=== PATIENT | male | born 1955 | race Caucasian/White ===

== ENCOUNTER 2017-10-06 10:26 | Day surgery (SDC) | payer MEDICAID, SELFPAY ==
[2017-10-01 15:36] VITALS: BMI 29.0
[2017-10-06] VITALS (9 sets, daily range): BP systolic 114–136; BP diastolic 70–86; PULSE 48–78; RESP 16–18; TEMP 36.3–36.8; O2SAT 97–100; BMI 28.8
[2017-10-06] MEDS: Cefazolin 2 GM in 0.9% Normal Saline 100 ML IV (11:53)
--- NOTE | 2017-10-06 12:00 | LES_PTH ---
PATIENT: NADIA LILLY LOC: [facility] [place] U#:[id number] AGE/SX: 62/M ROOM: RE10/06/[address]: Dr. Bang Hernandes MD : 1955 BED: DIS: 10/06/2017 SPEC #: [id number] RECD: 10/06/17 12:59 STATUS: ALLEN ABBY #: [id number] PAMELA: 10/06/17 12:[address]: Bang Hernandes DEPT: SURGICAL PATHOLOGY RECD BY: Will Major ENTERED: 10/06/17 13:35 SP TYPE: Lesion OTHR DR: No Primary Care Phys Tissues: Skin of chest Procedures: Surgery Specimen Level IV HEADER OPERATION: Insertion vascular port PRE-OP DIAGNOSIS: Rectal cancer; need for IV access TISSUE SUBMITTED: Mid chest lesion, short suture superior, left long suture, please check all margins MICROSCOPIC DIAGNOSIS Mid chest lesion, excisional biopsy: Basal cell carcinoma with focal ulceration and associated inflammation, completely excised. Actinic keratosis and solar elastosis. SJ:sana 10/07/17 MICROSCOPIC DESCRIPTION Slides are reviewed. GROSS DESCRIPTION Received in fixative is one container labeled with the patient's name and designated mid chest lesion. The specimen consists of an ellipse of light galicia excised skin measuring 3.5 x 2.5 x 0.2 cm. The cutaneous surface contains an exophytic galicia lesion measuring 2.1 cm in greatest dimension. The specimen is differentially inked as follows: superior ? black, inferior ? blue, right tip ? red and left tip ? orange. The specimen is serially sectioned and totally submitted in three cassettes. / AM:sana 10/06/17 TC:0 [facility]: [id number]
[2017-10-06] MEDS: Bupiv/Epi 0.5% Mpf 30 ML Vial (12:30)
--- NOTE | 2017-10-06 13:17 | RAD_ITS ---
STUDY: X-RAY CHEST REASON FOR EXAM: Male, 62 years old. Port placement. TECHNIQUE: Single AP portable view of the chest. COMPARISON: None. FINDINGS: A right-sided Port-A-Cath has been placed. The tip is in the midportion of the superior vena cava. The lungs are clear and expanded. There is no demonstrated pleural abnormality. Normal size heart. Normal mediastinum and gloria. Normal visualized pulmonary arteries. Normal visualized aortic arch and descending thoracic aorta. There are diffuse degenerative changes of the visualized thoracic spine. Normal visualized ribs, clavicles, and shoulders. There is no demonstrated abnormality of the visualized soft tissue structures of the upper abdomen. RAD/Chest 1 View (Portable) IMPRESSION: The tip of the right portacatheter is in the midportion of the superior vena cava. Electronically Signed: Brandyn Moore MD at 13:44 EDT Tel [phone], Service support ,
--- NOTE | 2017-10-06 13:38 | DCINST_ITS ---
Discharge Diet: No Restrictions - Pain medication may cause nausea. You should typically eat light foods as you take your pain medication. Discharge Activity: Return to Normal Activity, May Shower - with your bandage in place in 1-2 days after surgery. DO NOT SHOWER WHEN YOUR PORT IS ACCESSED. Call your doctor if your incision/area has: Continuous Slow Oozing, Sudden Increased Bleeding, Increased Pain/ Swelling, Increased Redness Call your doctor if you observe: Fever of 101 or Higher Remove Dressing in (days):: 2 - When you remove the bandage, leave the steri- strips intact until they fall off. Allergies/Adverse Reactions: Allergies No Known Allergies Allergy (Verified 10/03/17 10:03) Medications to take at Discharge Polyethylene Glycol 3350 [Miralax] 17 gm PO DAILY 09/25/17 Bisacodyl [Dulcolax] 5 mg PO TID PRN PRN 10/02/17 Lidocaine/Prilocaine [Lidocaine-Prilocaine Cream] 30 gm TP DAILY PRN PRN #1 cream..g. 10/02/17 Ondansetron HCl [Zofran] 4 mg PO Q8H PRN PRN 10 Days #30 tab 10/02/17 Primary Care Physician: Care Physician,No Primary [Primary Care Provider] - Please Follow Up With: Bang Hernandes MD When: call tomorrow to make 1 week follow up appt [phone]
--- NOTE | 2017-10-06 13:43 | OP.PCM_ITS ---
Problem List (1) Encounter for adjustment or management of vascular access device Status: Acute (2) Skin lesion of chest wall Status: Acute Report of Operation Date of Procedure: 10/06/17 Pre-Operative Diagnosis: 1. Rectal cancer. 2. Need for vascular access port. 3. Anterior skin lesion of the chest wall Post-Operative Diagnosis: Same Surgery/Procedure Performed:: 1. Ultrasound and fluoroscopy-guided right chest port placement utilizing right IJ. 2. Wide local excision of skin lesion of the anterior chest wall Specimen's removed: Anterior chest wall with long suture on the left side and short suture superior Description of Procedure: After obtaining informed consent patient was brought back to the operating room MAC anesthesia was induced and the right chest and neck were prepped in normal sterile fashion. Ultrasound was used to evaluate both IJ is in the right IJ was selected. Next, using a needle, the right IJ was accessed and a guidewire was passed on into the superior vena cava under fluoroscopy guidance. A small incision was made over the puncture site and the dilator introducer was placed over the guidewire. Next this was capped and the pocket was made for the port. 1% lidocaine with epinephrine was injected in the proposed port site. An incision was made with scalpel. Electrocautery was used to make a pocket under the skin and subcutaneous tissue. Hemostasis was obtained. Next, the catheter was tunneled up to the neck incision site and placed through the introducer. The peel-away introducer was removed and the position of the catheter was confirmed on fluoroscopy. Next, the catheter was trimmed and attached to the port with the locking device. Interrupted 2-0 PDS were used to anchor the port to the chest wall and then the port was placed inside the pocket. The pocket was then flushed with saline and the port irrigated with saline. There was good blood return and the port flushed easily. Next, heparin was injected into the port. The skin was closed with subcutaneous interrupted 3-0 Vicryl sutures and interrupted skin 3-0 nylon sutures. A single 3-0 Vicryl sutures placed under the skin at the neck incision site. Next attention was paid to the skin lesion on the anterior chest wall. The skin lesion itself was a 2 cm in diameter. A marking pen was used to nohemy 1 cm margins circumferentially. Next a skin incision was marked and anesthetized with Marcaine and epinephrine. Next an incision was made and deepened to subcutaneous tissue. This was carried around the mass and then the mass was sharply excised in the subcutaneous space. The cavity was irrigated and pressure was held and hemostasis was obtained with electrocautery. The specimen was approximately 4 cm in diameter by 6 cm in diameter including margins. This included the subcutaneous fat but did not involve the fascia of the chest wall. Next the incision was closed with interrupted 3-0 Vicryl sutures and a running 4-0 Monocryl suture as well as Steri-Strips. Bandages were then applied. Patient tolerated procedure well, was taken to PACU in stable condition. Chest x-ray will be obtained. Grafts/Implants Used: 8 Khmer PowerPort - Admit VTE Documentation VTE Mechan Device Prophylaxis: SCD's
== END 2017-10-06 14:37 | disposition home or self-care (01) ==
LOC: SDC 10:27 → AC 10:33
PROVIDERS: Visit Provider Surgery
PROC: (CPT 11602; principal; 2017-10-06 11:45)
PROC: (CPT 11602; 2017-10-06 11:45)
DX: C44.519 Basal cell carcinoma of skin of other part of trunk (principal); C20 Malignant neoplasm of rectum; Z87.891 Personal history of nicotine dependence
CPT/HCPCS: 11602; 36571; 71045; 77001; 88305; J1756; J7050; J7120; C1788

== ENCOUNTER → 2017-12-31 13:07 | Outpatient (CLI) | payer MEDICAID, SELFPAY ==
[2017-10-01 15:36] VITALS: BMI 29.0
--- NOTE | 2017-12-31 13:10 | CT_ITS ---
STUDY: CT ABDOMEN AND PELVIS WITH CONTRAST REASON FOR EXAM: Male, 62 years old. Rectal cancer staging RADIATION DOSAGE (If Supplied By Facility): CTDIvol = ( 24.39 ) mGy, DLP = ( 2609.8 ) mGycm TECHNIQUE: Transaxial images were obtained from the dome of the diaphragm to the symphysis pubis without oral contrast. 100 ml of Isovue 300 contrast was administered. Sagittal and coronal images were reconstructed. Individualized dose optimization techniques were used for this CT. COMPARISON: September 18, 2017. FINDINGS: The visualized lung bases are unremarkable. The visualized portions of the heart are within normal limits. Normal liver. Normal gallbladder and extrahepatic biliary system. Normal spleen. Normal pancreas. Normal bilateral adrenal glands. Normal right kidney. Normal left kidney. Normal visualized stomach. Normal small intestine. Wall thickening with mass in the rectum is improved compared to the prior study, series 3 images 96/125 through 101/125. The appendix is visualized and appears normal. There is atherosclerotic calcification of the abdominal aorta, without a demonstrated aneurysm. Normal inferior vena cava. Normal retroperitoneum. Normal urinary bladder. There is no free fluid in the abdomen or pelvis. Normal abdominal wall. There is levoscoliosis with degenerative changes of the lumbar spine. CT/Abdomen/Pelvis W IV Cont ONLY IMPRESSION: Decreased size of mass in the rectum. No obstruction. Electronically Signed: Gabo Reyes MD at 21:59 EDT , Service support ,
--- NOTE | 2017-12-31 13:11 | CT_ITS ---
STUDY: CT CHEST WITH CONTRAST REASON FOR EXAM: Male, 62 years old. Rectal cancer staging RADIATION DOSAGE (If Supplied By Facility): CTDIvol = ( 24.39 ) mGy, DLP = ( 2609.8 ) mGycm TECHNIQUE: Transaxial imaging was performed following intravenous administration of 100 ml of Isovue 300 contrast material. Multiplanar coronal and sagittal images were reformatted. Individualized dose optimization techniques were used for this CT. COMPARISON: September 18, 2017 FINDINGS: There is port on the right extending to the superior vena cava. There are mild interstitial opacities of the lungs. There is atelectasis in the left lingula. There is no demonstrated pleural abnormality. There are calcifications of the coronary arteries. Normal mediastinum. Normal hilar regions. Normal enhanced pulmonary arteries. Normal aorta arch and descending thoracic aorta. There are multi-level degenerative changes of the thoracic spine. There is degenerative change of the shoulders. There is no demonstrated abnormality of the visualized upper abdomen. CT/Chest WITH Contrast IMPRESSION: No dominant mass or adenopathy. Electronically Signed: Gabo Reyes MD at 22:05 EDT , Service support ,
== END ==
PROVIDERS: Visit Provider Internal Medicine Hematology & Oncology
DX: C20 Malignant neoplasm of rectum (principal)
CPT/HCPCS: 71260; 74177; Q9967

== ENCOUNTER → 2019-02-01 06:59 | Outpatient (CLI) | payer MEDICAID, SELFPAY ==
[2017-10-01 15:36] VITALS: BMI 29.0
[2019-01-22 13:37] VITALS: BMI 27.3
--- NOTE | 2019-02-01 07:01 | CT_ITS ---
STUDY: CT CHEST WITH CONTRAST REASON FOR EXAM: Male, 63 years old. Follow-up rectal cancer. RADIATION DOSAGE (If Supplied By Facility): CTDIvol = ( 17.8 ) mGy, DLP = ( 1797.99 ) mGycm TECHNIQUE: Transaxial imaging was performed following intravenous administration of 100 IV Isovue 300. Individualized dose optimization techniques were used for this CT. COMPARISON: 12/31/2017 FINDINGS: There is hyperinflation of the lungs consistent with chronic obstructive lung disease (COPD). No infiltrates. No nodules or masses. No pleural effusions. There is no demonstrated pleural abnormality. Normal heart and pericardium. Normal mediastinum. Normal hilar regions. Normal enhanced pulmonary arteries. Normal aorta arch and descending thoracic aorta. There are multi-level degenerative changes of the thoracic spine. There is no demonstrated abnormality of the visualized upper abdomen. CT/Chest WITH Contrast IMPRESSION: No acute pneumonia. No evidence for metastatic disease. Hyperexpansion of the lungs consistent with COPD. Electronically Signed: Ortega Sinclair MD at 21:21 EDT , Service support ,
--- NOTE | 2019-02-01 07:01 | CT_ITS ---
STUDY: CT ABDOMEN AND PELVIS WITH CONTRAST REASON FOR EXAM: Male, 63 years old. Rectal cancer follow-up RADIATION DOSAGE (If Supplied By Facility): CTDIvol = ( 17.8 ) mGy, DLP = ( 1797.99 ) mGycm TECHNIQUE: Transaxial images were obtained from the dome of the diaphragm to the symphysis pubis without oral contrast. 100 IV Isovue 300 was administered. Sagittal and coronal images were reconstructed. Individualized dose optimization techniques were used for this CT. COMPARISON: 09/18/2017, 12/31/2017. FINDINGS: The visualized lung bases are unremarkable. The visualized portions of the heart are within normal limits. Normal liver. Normal gallbladder and extrahepatic biliary system. Normal spleen. Normal pancreas. Normal bilateral adrenal glands. Normal right kidney. Normal left kidney. Since prior study patient has had resection of rectal mass. Currently the distal sigmoid and rectum are very poorly evaluated because of absence of GI contrast and nondistention. There may be a recurrence of rectal wall thickening, and there has been significant increase in presacral soft tissue density. This can be scarring or neoplasm. PET scan is recommended. No dilated loops of bowel or evidence for obstruction but segments of bowel wall thickening cannot be excluded without oral contrast. There appears to have been a previous right colostomy that is not currently patent. Correlate with surgical history, which is not provided on this requisition. Normal abdominal aorta. Normal inferior vena cava. Normal retroperitoneum. There appears to be thickening of the wall of the urinary bladder. Normal abdominal wall. There are diffuse degenerative changes of the visualized lumbar spine. Mild levoconvex scoliosis. CT/Abdomen/Pelvis W IV Cont ONLY IMPRESSION: This interpretation is hampered by absence of surgical history and there are likely interval CT scans that are not provided for comparison. There appears to have been extensive abdominal surgery since previous exam. There appears to have been rectosigmoid surgery and a previous right mid abdominal ostomy. There may be thickening of the rectum and distal sigmoid, urinary difficult to evaluate without oral contrast. Cannot exclude recurrence. There is prominence of soft tissue density anterior to the sacrum, not present previously which could be fibrosis or neoplasm. Correlate with all prior studies, surgical history, and consider PET scan. Electronically Signed: Ortega Sinclair MD at 19:41 EDT , Service support ,
[2019-02-01 07:10] LABS: CREATININE FINGERSTICK 0.9 mg/dL (0.70-1.30); EGFR FINGERSTICK > 60.0000 mL/min (>60)
== END ==
PROVIDERS: Referring Provider Internal Medicine Hematology & Oncology; Visit Provider Internal Medicine Hematology & Oncology
DX: C20 Malignant neoplasm of rectum (principal); R97.0 Elevated carcinoembryonic antigen [CEA]
CPT/HCPCS: 71260; 74177; Q9967

== ENCOUNTER 2019-02-02 08:56 | Day surgery (SDC) | payer MEDICAID, SELFPAY ==
[2017-10-01 15:36] VITALS: BMI 29.0
[2019-01-22 13:37] VITALS: BMI 27.3
--- NOTE | 2019-01-25 08:40 | HP_ITS ---
Intake Vital Signs 01/22/19 Body Mass Index (BMI) 27.3 01/22/19 Height 6 ft 3 in 01/22/19 Weight: 220 lb 01/22/19 Body Mass Index (BMI) 27.5 01/22/19 Blood Pressure 160/92 H 01/22/19 Blood Pressure Location Rt brachial 01/22/19 Blood Pressure Position Sitting 01/22/19 Respiratory Rate 18 01/22/19 Pulse Rate 56 L 01/22/19 Pulse Source Monitor 01/22/19 Temperature 98.1 F 01/22/19 Temperature Source Oral 01/22/19 Pulse Ox 97 01/22/19 Oxygen Delivery Method room air Intake Visit Reasons: C-Scope Consult Chief Complaint: Rectal cancer follow-up [employer] Required: No Is patient in pain?: No Allergies oxycodone Adverse Reaction (Severe, Verified 01/22/19 13:37) Other Medications Lidocaine/Prilocaine [Lidocaine-Prilocaine Cream] 30 gm TP DAILY PRN PRN #1 cream..g. 10/02/17 [Rx Confirmed 01/22/19] Acetaminophen [Pain & Fever] 650 mg PO PRN PRN 09/16/18 [History Confirmed 01/22/19] Docusate Sodium [Dulcolax Stool Softener] 100 mg PO PRN PRN 09/16/18 [History Confirmed 01/22/19] PFSH Medical History Hx of sigmoidoscopy (Acute) Rectal bleeding (Acute) Rectal cancer (Acute) Rectal mass (Acute) closure fistula intestinal cutaneous (Acute) port placement (Acute) temporary diverting loop ileostomy (Acute) Surgical History H/O hand surgery (Acute) History of tonsillectomy (Acute) S/P cystoscopy with ureteral stent placement (Acute) excision of skin lesion on chest (Acute) jaw set (Acute) Family History Mother Cancer Social History (Updated 01/25/19 @ 08:40 by Bang Hernandes MD) Smoking Status: Former smoker alcohol intake: current alcohol intake frequency: other details: at least a 6 pack of beer per day substance use type: marijuana HPI HPI HPI: NADIA LILLY, is a 63 M who presents to the office today for HPI HPI Surgical H&P: Yes HPI: NADIA LILLY, is a 63 M who presents to the office today for EGD and colonoscopy. Patient reports that he has a history of Rodriguez's esophagus and is due for surveillance EGD. Patient also had a history of rectal cancer which was resected 1 year ago. He is in need of colonoscopy for surveillance. Patient reports no blood in his stool or abdominal pain. ROS General General: Yes weight change, fatigue and colon cancer; no appetite, breast cancer or weakness HEENT HEENT: No difficulty swallowing, eye injury, eye surgery, swollen glands or hoarseness Endo Endocrine: No thyroid disease, diabetes mellitus, thyroid cancer, Hair loss, heat intolerance or cold intolerance Skin Skin: No rash or changing moles Breast Breast: No left breast lump, right breast lump, nipple discharge, breast pain, abnormal mammogram, abnormal US or breast enlargement Musc Musculoskeletal: No back problems, arthritis, rheumatoid arthritis, gout or joint pain Cardio Cardiovascular: No murmur, pacemaker, heart disease, atrial fibrillation, high blood pressure, heart attack, heart stent, palpitations, shortness of breat with exertion or chest pain Psych Psychiatric: No depression, anxiety or hearing voices Resp Respiratory: No shortness of breath, No sleep apnea, No cough, No COPD, No asthma, No emphysema, No wheezing Gastro Gastrointestinal: No abdominal pain, No nausea or vomiting, No diarrhea, No constipation, No blood in stool, No acid reflux, No hemorrhoids, No ulcers, No gallbladder problem, No black,tarry stools [place] Hematologic: No blood thinners, No blood disorders, No bleeding, No anemia, No blood clots Neuro Neurologic: No system reviewed and no additional complaints, except as docu, No as per HPI, No abnormal walking, No abnormal hearing, No abnormal movements, No abnormal speech, No behavioral changes, No burning sensations, No confusion, No seizure-like activity, No unsteadiness, No dizziness, No localized weakness, No frequent falls, No headache(s), No lack of coordination, No loss of vision, No memory loss, Yes numbness, No other visual disturbances, No radiating pain, No restless legs, No sensory deficit, No fainting, Yes tingling, No tremor(s), No weakness, No other Exam Const General: cooperative Orientation: alert, oriented x3 Chest Breast Palpation: No nipple discharge Resp Effort & Inspection: normal respiratory effort Auscultation: clear to auscultation bilaterally Cardio Rate: regular rate Rhythm: regular rhythm Heart Sounds: no murmurs GI Inspection: non-distended Palpation: soft, nontender Assessment & Plan Problems 1. Rectum cancer C20 2. Rodriguez's esophagus without dysplasia K22.70 Plan The patient has a history of Rodriguez's esophagus and needs surveillance EGD. Patient had a history of rectal cancer with resection and then subsequent reversal of his loop ileostomy. Patient needs colonoscopy for surveillance. I explained endoscopy in detail to the patient. I explained the risks including but not limited to stroke or heart attack with anesthesia, perforation of the GI tract, bleeding, infection. I explained that any of these could necessitate further emergency surgery. The patient understands and all questions were answered sufficiently. The patient wishes to proceed with procedure. Bnag Hernandes MD Pager: [facility] [address] [place] [address] [address] [place] [address] Office: Orders Orders: Colonoscopy Today C20 EGD Today K22.70 Coding Level of Care Code Off vis,est,level 3 Diagnoses Rectum cancer C20 Rodriguez's esophagus without dysplasia K22.70 ??Rodriguez's esophagus type: without dysplasia 01/25/19 0840 <Electronically signed by Bang blanton MD> Date _ Bang Hernandes MD I have re-examined the patient. There are no clinical changes since date of exam.
--- NOTE | 2019-02-02 | IMM_PTH ---
PATIENT: NADIA LILLY LOC: [place] U#:[id number] AGE/SX: 63/M ROOM: RE02/02/[address]: Dr. Bang Hernandes MD : 1955 BED: DIS: 02/02/2019 SPEC #: [id number] RECD: 02/03/19 11:41 STATUS: ALLEN REQ #: [id number] PAMELA: 02/02/19 00:[address]: Bang Hernandes DEPT: IMMUNOHISTOCHEMISTRY RECD BY: Gissell Mayer ENTERED: 02/03/19 11:42 SP TYPE: IMMUNO OTHR DR: Dr. Nataly Tyler MD Tissues: Esophageal mucous membrane Procedures: P53 (initial) PHYSICIAN & [place] [id number] SPECIMEN INFORMATION: Tissue Source: GE junction biopsy Clinical Info: Rodriguez's esophagus, history of rectal cancer Specimen Number: [id number] CPT code: 94476 METHODOLOGY: Deparaffinized sections of prefer/formalin-fixed tissue or PAP/DQ stained slides are incubated with monoclonal/polyclonal antibodies/oligonucleotide probes. Localization is made via biotin free immunoperoxidase method. Appropriate controls are performed and reacted as expected. Results on target cell population are indicated in the following table: RESULTS: ANTIBODY / CLONE RESULT P53 (DO-7) positive, focal These tests were developed and their performance characteristics determined by [facility]. They may not have been cleared or approved by the U.S. Food and Drug Administration. The FDA has determined that such clearance or approval is not necessary. INTERPRETATION: GE junction biopsy: No evidence of dysplasia. AM:sana 02/03/19
[2019-02-02 09:13] VITALS: BP 132/68; PULSE 84; RESP 16; TEMP 36.7; O2SAT 99; BMI 27.0
--- NOTE | 2019-02-02 10:00 | EGD_PTH ---
PATIENT: NADIA LILLY LOC: [place] U#:[id number] AGE/SX: 63/M ROOM: RE02/02/[address]: Dr. Bang Hernandes MD : 1955 BED: DIS: 02/02/2019 SPEC #: [id number] RECD: 02/02/19 13:20 STATUS: ALLEN ABBY #: [id number] PAMELA: 02/02/19 10:[address]: Bang Hernandes DEPT: SURGICAL PATHOLOGY RECD BY: Wilmer Berkowitz ENTERED: 02/02/19 13:51 SP TYPE: EGD BIOPSY OT DR: Dr. 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 No evidence of dysplasia. Mild chronic and focal acute inflammation. AM:sana 02/03/19 COMMENT Alcian blue/PAS stain with matched control supports the above diagnosis. Immunohistochemistry ([id number]) supports the above diagnosis. MICROSCOPIC DESCRIPTION Slides are reviewed. GROSS DESCRIPTION Received in fixative is one container labeled with the patient's name and designated GE junction biopsy. The specimen consists of multiple irregular fragments of light galicia soft tissue that in aggregate measure 1 x 0.6 x 0.1 cm. The specimen is totally submitted in one cassette. / AM:sana 02/02/19 TC:2 CPT: 34692, 47656
[2019-02-02 10:48] VITALS: BP 128/81; BP 132/68; PULSE 74; RESP 14; TEMP 36.3; O2SAT 99
--- NOTE | 2019-02-02 10:48 | OP.ENDO_ITS ---
02/02/2019 Nataly Tyler Md Re : Upper GI endoscopy procedure for Cuauhtemoc Trent Dear Nayeli This procedure was performed on Saturday, February 02, 2019. My impressions and recommendations are as follows: Impressions : - Esophageal mucosal changes secondary to established short-segment Rodriguez's disease. Biopsied. - The examination was otherwise normal. Recommendations : - Await pathology results. - Discharge patient to home (ambulatory). - Resume previous diet. - Continue present medications. My findings are described in the full procedure note, which is enclosed. If I can be of further assistance, please feel free to contact me at Doctor phone number(s): , Work: . Sincerely, Bang Hernandes MD 02/02/2019 10:48:11 AM This report has been signed electronically.
--- NOTE | 2019-02-02 10:50 | OP.ENDO_ITS ---
02/02/2019 Nataly Tyler Md Re : Colonoscopy procedure for Cuauthemoc Trent Dear Nayeli This procedure was performed on Saturday, February 02, 2019. My impressions and recommendations are as follows: Impressions : - The entire examined colon is normal on direct and retroflexion views. - No specimens collected. Recommendations : - Discharge patient to home. - Resume previous diet. - Continue present medications. - Repeat colonoscopy in 1 year for surveillance based on personal history of colon cancer. My findings are described in the full procedure note, which is enclosed. If I can be of further assistance, please feel free to contact me at Doctor phone number(s): , Work: . Sincerely, Bang Hernandes MD 02/02/2019 10:49:53 AM This report has been signed electronically.
[2019-02-02 10:55] VITALS: BP 132/68; BP 140/91; PULSE 79; RESP 14; O2SAT 99
[2019-02-02 10:59] VITALS: BP 132/68; BP 135/76; PULSE 68; RESP 14; O2SAT 98
[2019-02-02 11:05] VITALS: BP 132/68; BP 145/91; PULSE 73; RESP 16; TEMP 36.1; O2SAT 97
[2019-02-02 11:25] VITALS: BP 132/68
== END 2019-02-02 11:42 | disposition home or self-care (01) ==
LOC: EN 08:57 → AC 08:58
PROVIDERS: Visit Provider Surgery
PROC: 0DJD8ZZ Inspection of Lower Intestinal Tract, Via Natural or Artificial Opening Endoscopic (ICD-10-PCS; CPT 45378; principal; 2019-02-02 09:55)
DX: Z12.11 Encounter for screening for malignant neoplasm of colon (principal); K22.70 Barrett's esophagus without dysplasia; Z88.5 Allergy status to narcotic agent; Z85.048 Personal history of other malignant neoplasm of rectum, rectosigmoid junction, and anus; Z87.891 Personal history of nicotine dependence
CPT/HCPCS: 43239; 45378; 88305; 88313; 88342; J7120